=== PATIENT | female | born 1945 | race Caucasian/White ===

== ENCOUNTER → 2017-08-16 11:04 | Outpatient (CLI) | payer MEDICARE, SELFPAY ==
[2017-08-16 13:01] LABS: Cholesterol 117 mg/dL (200); High Density Lipoprotein 57 mg/dL; Thyroid Stim Hormone (TSH) 0.61 uIU/mL (0.358-3.74); Triglycerides 58 mg/dL; Very Low Density Lipoprotein 12 mg/dL (5-40)
== END ==
PROVIDERS: Family Provider Family Medicine; PCP Family Medicine; Visit Provider Family Medicine
DX: E03.9 Hypothyroidism, unspecified (principal)
CPT/HCPCS: 36415; 80061; 84443

== ENCOUNTER → 2017-10-30 12:21 | Outpatient (CLI) | payer MEDICARE, SELFPAY ==
[2017-10-30 14:15] LABS: Hematocrit 37.3 % (37-47); Hemoglobin 12.7 g/dl (12.0-15.0); Mean Platelet Vol. 10.6 fl (6.2-12.0); Platelet Count 239 K/mm3 (150-450); RBC Distribution Width CV 12.2 % (11.6-14.6); RBC Distribution Width SD 43.3 fl (35.1-43.9); Red Blood Count 3.73 M/mm3 (4.2-5.4); White Blood Count 3.9 K/mm3 (4.4-11.0)
[2017-10-30 14:21] LABS: Scan Indicated on CBC? Y/N NO
[2017-10-30 14:27] LABS: Microalbumin,Random Urine 82.4 mg/L (NO RANGE EST.); Microalbumin:Creatinine Ratio 73.6 mg/g CRE (<30 mg/g CRE)
[2017-10-30 14:33] LABS: Albumin, Serum 3.8 g/dL (3.2-5.0); BUN 29 mg/dL (7-18); BUN/Creat Ratio 15.5 RATIO (10-20); Calcium,Total 9.9 mg/dL (8.5-10.1); Chloride 102 mmol/L (98-107); Creatinine, Serum 1.87 mg/dL (0.55-1.02); EST Glomerular Filtration Rate 28 mL/min (>60); Est Glom Filt Rate - Afr Amer 34 mL/min (>60); Glucose 121 mg/dL (74-106); Magnesium 2.2 mg/dL (1.6-2.6); Phosphorus 2.6 mg/dL (2.5-4.9); Potassium 4.4 mmol/L (3.5-5.1); Sodium Level 135 mmol/L (136-145)
[2017-10-30 14:36] LABS: Vitamin D,25 Hydroxy 45.6 ng/mL (29.95-100.01)
[2017-10-30 14:37] LABS: PTHIN 144.9 pg/mL (18.4-80.1)
[2017-11-01 13:23] LABS: Tacrolimus (FK506) 7.4 ng/mL (2.0-20.0)
== END ==
PROVIDERS: Internal Medicine Nephrology; Family Provider Family Medicine; PCP Family Medicine; Visit Provider Internal Medicine Nephrology
DX: E55.9 Vitamin D deficiency, unspecified (principal); N25.81 Secondary hyperparathyroidism of renal origin; Z94.0 Kidney transplant status; D89.9 Disorder involving the immune mechanism, unspecified; N18.9 Chronic kidney disease, unspecified; D63.1 Anemia in chronic kidney disease
CPT/HCPCS: 36415; 80069; 80197; 82043; 82306; 82570; 83735; 83970; 85027

== ENCOUNTER → 2018-01-24 10:17 | Outpatient (CLI) | payer MEDICARE, SELFPAY ==
[2018-01-24 12:27] LABS: Anion Gap 8 (5-15); BUN 26 mg/dL (7-18); BUN/Creat Ratio 15.3 RATIO (10-20); Calcium,Total 9.7 mg/dL (8.5-10.1); Chloride 99 mmol/L (98-107); EST Glomerular Filtration Rate 31 mL/min (>60); Est Glom Filt Rate - Afr Amer 38 mL/min (>60); Glucose 99 mg/dL (74-106); Potassium 4.1 mmol/L (3.5-5.1); Sodium Level 136 mmol/L (136-145); Thyroid Stim Hormone (TSH) 5.38 uIU/mL (0.358-3.74)
== END ==
PROVIDERS: Family Provider Family Medicine; PCP Family Medicine; Visit Provider Family Medicine
DX: E03.9 Hypothyroidism, unspecified (principal)
CPT/HCPCS: 36415; 80048; 84443

== ENCOUNTER → 2018-04-08 09:28 | Outpatient (CLI) | payer MEDICARE, SELFPAY ==
[2018-04-08 12:22] LABS: Color, Urine Yellow (Yellow); Glucose, Dipstick Normal (Normal); Ketone-Dipstick Negative (Negative); Leukocyte Esterase-Dipstick Negative /ul (Negative); Nitrite-Dipstick Negative (Negative); Occult Blood-Urine Negative /ul (Negative); Protein-Dipstick Negative (Negative); Urine Bilirubin Dipstick Negative (Negative); Urine Clarity Clear (Clear); Urine Urobilinogen Normal (Normal)
[2018-04-08 12:24] LABS: Hematocrit 38.2 % (37-47); Hemoglobin 12.8 g/dl (12.0-15.0); Mean Corp Hgb Conc 33.5 g/gl (32-36); Mean Corpuscular Hgb 34.1 pg (27.0-32.0); Mean Corpuscular Volume 101.9 fL (81-99); Mean Platelet Vol. 10.8 fl (6.2-12.0); Platelet Count 241 K/mm3 (150-450); RBC Distribution Width CV 12.3 % (11.6-14.6); RBC Distribution Width SD 44.9 fl (35.1-43.9); Red Blood Count 3.75 M/mm3 (4.2-5.4)
[2018-04-08 12:29] LABS: Scan Indicated on CBC? Y/N NO
[2018-04-08 12:49] LABS: PTHIN 131.9 pg/mL (18.4-80.1); Vitamin D,25 Hydroxy 50.5 ng/mL (29.95-100.01)
[2018-04-08 12:56] LABS: Albumin, Serum 3.8 g/dL (3.2-5.0); BUN 23 mg/dL (7-18); BUN/Creat Ratio 14.3 RATIO (10-20); Calcium,Total 9.1 mg/dL (8.5-10.1); Chloride 104 mmol/L (98-107); Creatinine, Serum 1.61 mg/dL (0.55-1.02); EST Glomerular Filtration Rate 33 mL/min (>60); Est Glom Filt Rate - Afr Amer 40 mL/min (>60); Ferritin 106 ng/mL (8-252); Glucose 90 mg/dL (74-106); Iron 117 ug/dL (50-170); Iron Binding Capacity,Total 274 ug/dL (250-450); PERCENT IRON SATURATION 42.7 % (15.0-55.0); Phosphorus 2.6 mg/dL (2.5-4.9); Potassium 3.9 mmol/L (3.5-5.1); Sodium Level 137 mmol/L (136-145)
[2018-04-08 13:07] LABS: Microalbumin,Random Urine 21.4 mg/L (NO RANGE EST.); Microalbumin:Creatinine Ratio 32.5 mg/g CRE (<30 mg/g CRE); Protein, Urine (Random) 11.7 mg/dL (<11.9); Protein:Creat Ratio 178 mg/g CRE (0-200)
[2018-04-10 10:27] LABS: Tacrolimus (FK506) 5.8 ng/mL (2.0-20.0)
== END ==
PROVIDERS: Family Provider Family Medicine; PCP Family Medicine; Referring Provider Internal Medicine Nephrology; Visit Provider Internal Medicine Nephrology
DX: N25.81 Secondary hyperparathyroidism of renal origin (principal); E55.9 Vitamin D deficiency, unspecified; N18.9 Chronic kidney disease, unspecified; D63.1 Anemia in chronic kidney disease; Z94.0 Kidney transplant status; D89.9 Disorder involving the immune mechanism, unspecified
CPT/HCPCS: 36415; 80069; 80197; 81002; 82043; 82306; 82570; 82728; 83540; 83550; 83970; 84156; 85027

== ENCOUNTER → 2018-05-16 10:34 | Outpatient (CLI) | payer MEDICARE, SELFPAY ==
--- NOTE | 2018-05-16 10:37 | BI_ITS ---
MAMMOGRAPHY - BILATERAL SCREENING REASON FOR EXAM: Female, 73 years old. Routine annual screening examination. PERTINENT HISTORY: Non-contributory. TECHNIQUE: Digital bilateral breast brandy (3D mammographic acquisition) in the CC and MLO projections. 2-D mediolateral oblique (MLO) and craniocaudad (CC) views of both breasts were obtained. CAD: Full Field Digital Mammography with Computer Added Detection was performed. COMPARISON: Comparison is made with prior axial examination dated October 05, 2014. FINDINGS: Breast Composition: The breasts are heterogeneously dense, which may obscure small masses. There are no dominant masses or suspicious calcifications. No other significant abnormalities are identified. There has been no significant change since the prior study. BI/SCREENING MAMM (CAD), BILAT IMPRESSION: Stable bilateral screening mammogram. Yearly follow-up mammogram recommended. (A) ASSESSMENT CATEGORY: Approximately 10% of breast cancers are not detected by mammography. A normal mammogram should not delay biopsy of a clinically suspicious abnormality. [id number] Electronically Signed: Dimitris Oreilly MD at 9:32 EST Tel [phone], Service support ,
== END ==
PROVIDERS: Family Provider Family Medicine; PCP Family Medicine; Referring Provider Family Medicine; Visit Provider Family Medicine
DX: Z00.00 Encounter for general adult medical examination without abnormal findings (principal); Z12.31 Encounter for screening mammogram for malignant neoplasm of breast
CPT/HCPCS: 77063; 77067

== ENCOUNTER → 2018-07-11 10:12 | Outpatient (CLI) | payer MEDICARE, SELFPAY ==
[2018-07-11 13:03] LABS: Thyroid Stim Hormone (TSH) 5.88 uIU/mL (0.358-3.74)
--- OUTSIDE RECORDS SUMMARY | 2018-09-14 18:02 | XMS RPT_ITS ---
:1945 Author Organization OHIP Care Team Providers Name Role Phone Husam Bryant Attending Unavailable Husam Bryant Primary Care Unavailable Husam Bryant Attending Unavailable Husam Bryant Primary Care Unavailable Aubrie Hernández Consulting Unavailable Husam Bryant Primary Care Unavailable Aubrie Hernández Attending Unavailable Husam Bryant Attending Unavailable Husam Bryant Primary Care Unavailable Husam Bryant Primary Care Unavailable Referred, Self Attending Unavailable Husam Bryant Primary Care Unavailable Savannah Guerrero Attending Unavailable Savannah Guerrero Referring Unavailable Husam Bryant Attending Unavailable Husam Bryant Referring Unavailable Husam Bryant Primary Care Unavailable PROBLEMS PROBLEMS DATE TYPE CONDITION / CODE ATTENDING STATUS SOURCE Unknown E03.9 - Hypothyroidism, Husam Bryant Active [place] 9 unspecified / Community E03.9(ICD-10) Hospital Repository Unknown 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 [address] [place], [address] SCREENING MAMM (CAD), Observed: 05/16/2018 Status: F Source: MIGUEL BILAT 10:37 AM [facility] REPOSITORY [facility] Imaging Services [address] [facility] [address] SCREENING MAMM (CAD), BILAT MR#: [id number] Acct: [id number] Name: ANGELINE GEORGE Rep #: [id number] : 1945 F 73 From: Dimitris Oreilly MD PCP: Husam Bryant MD Status: [facility] Study: SCREENING MAMM (CAD), BILAT Date of Exam: 05/16/18 Exam# [id number] Ordering Dr: Husam Bryant MD ADDENDUM by Dimitris Oreilly MD on 05/20/18 at 0804 ADDENDUM This is an addendum report for BIRADS category. BIRADS Category 1. Electronically Signed: Dimitris Oreilly MD at 8:04 EST Tel [phone], Service support , 05/20/18 0804 Date cc: Husam Bryant MD * Signed ADDENDUM by Dimitris Oreilly MD on 05/20/18 at 0804 BI/SCREENING MAMM (CAD), BILAT 05/20/18 0811 Date cc: Husam Bryant MD * Signed MAMMOGRAPHY - BILATERAL SCREENING REASON FOR EXAM: Female, 73 years old. Routine annual screening examination. PERTINENT HISTORY: Non-contributory. TECHNIQUE: Digital bilateral breast brandy (3D mammographic acquisition) in the CC and MLO projections. 2-D mediolateral oblique (MLO) and craniocaudad (CC) views of both breasts were obtained. CAD: Full Field Digital Mammography with Computer Added Detection was performed. COMPARISON: Comparison is made with prior axial examination dated October 05, 2014. FINDINGS: Breast Composition: The breasts are heterogeneously dense, which may obscure small masses. There are no dominant masses or suspicious calcifications. No other significant abnormalities are identified. There has been no significant change since the prior study. BI/SCREENING MAMM (CAD), BILAT IMPRESSION: Stable bilateral screening mammogram. Yearly follow-up mammogram recommended. (A) ASSESSMENT CATEGORY: Approximately 10% of breast cancers are not detected by mammography. A normal mammogram should not delay biopsy of a clinically suspicious abnormality. [id number] Electronically Signed: Dimitris Oreilly MD at 9:32 EST Tel [phone], Service support , CC: Husam Bryant MD Fire Alarm Operator: Signed URINALYSIS, ROUTINE Collected: 04/08/2018 Status: F Source: MIGUEL (DIPSTICK) 9:32 AM [facility] REPOSITORY Order Comment: Comments: MIACRE How was Urine Obtained? CLEAN CATCH TYPE CODE TESTS RESULT OUT OF RANGE REFERENCE UNITS LAB L400.3000 Yellow COLOR Normal Yellow LAB L400.3050 Clear Normal CLARITY Clear LAB L400.3200 Normal mg/dl Normal GLUCOSE, UR Normal LAB L400.3300 Negative mg/dL Normal BILIRUBIN URINE Negative LAB L400.3400 Negative mg/dl Normal KETONE UR Negative LAB L400.3465 1.002-1.030 Normal SP.GR. DIPSTX 1.010 LAB L400.3550 5.0 - 8.0 pH UR Normal 7.0 LAB L400.3600 Negative mg/dl PROT Normal DIPSTX Negative LAB L400.3700 Normal mg/dl Normal UROBILI Normal LAB L400.3750 Negative Normal NITRITE UR Negative LAB L400.3780 Negative /ul Normal OCCULT BLOOD-UR Negative LAB L400.3800 Negative /ul LEUK Normal ESTERASE Negative Performed By: #### L400.2010 #### [facility] [address] [place], [place], [id number] CBC-COMPLETE BLOOD CNT Collected: 04/08/2018 Status: F Source: MIGUEL NO DIFF 9:32 AM [facility] REPOSITORY TYPE CODE TESTS RESULT OUT OF RANGE REFERENCE UNITS LAB L100.1000 4.4-11.0 K/mm3 Low WBC 4.0 LAB L100.1200 4.2-5.4 M/mm3 Low RBC 3.75 LAB L100.1300 12.0-15.0 g/dl Normal HGB 12.8 LAB L100.1400 37-47 % Normal HCT 38.2 LAB L100.1500 81-99 fL High MCV 101.9 LAB L100.1600 27.0-32.0 pg High MCH 34.1 LAB L100.1700 32-36 g/gl Normal MCHC 33.5 LAB L100.1810 11.6-14.6 % Normal RDW CV 12.3 LAB L100.1820 35.1-43.9 fl High RDW SD 44.9 LAB L100.1900 150-450 K/mm3 Normal PLT 241 LAB L100.2000 6.2-12.0 fl Normal MPV 10.8 Performed By: #### L100.0500 #### [facility] [address] [facility] [place], [place], [id number] PTHIN Collected: 04/08/2018 Status: F Source: MIGUEL 9:32 AM [facility] REPOSITORY TYPE CODE TESTS RESULT OUT OF RANGE REFERENCE UNITS LAB L509.1000 18.4-80.1 pg/mL High PTHIN 131.9 Performed By: #### L509.1000 #### [facility] [address] [place], [place], [address] VITAMIN D,25 HYDROXY Collected: 04/08/2018 Status: F Source: MIGUEL 9:32 AM [facility] REPOSITORY TYPE CODE TESTS RESULT OUT OF RANGE REFERENCE UNITS LAB L506.1000 29.95-100.01 ng/mL Normal Vitamin D 50.5 25-OH Result Comment: Vitamin D 25(OH) Status Range Deficiency <20 ng/mL (50nmol/L) Insuffciency 20 - 30 ng/mL (50 - 75 nmol/L) Sufficiency 30 - 100 ng/mL (75 - 250 nmol/L) Toxicity >100 ng/mL (>250 nmol/L) Performed By: #### L506.1000 #### [facility] [address] [place], [place], [address] RENAL PROFILE Collected: 04/08/2018 Status: F Source: MIGUEL 9:32 AM [facility] REPOSITORY Order Comment: Comments: MIACRE TYPE CODE TESTS RESULT OUT OF RANGE REFERENCE UNITS LAB L501.0100 74-106 mg/dL Normal GLU 90 Result Comment: Please note revised GLUCOSE reference range effective 2017. LAB L501.1000 7-18 mg/dL High BUN 23 LAB L501.1100 0.55-1.02 mg/dL High CREAT,SERUM 1.61 Result Comment: The validity of the calculated GFR AND GFRAA in patients over 70 years has not been determined. Clinical correlation is essential. LAB L501.1110 >60 mL/min Low EST GFR 33 Result Comment: Non- GFR Calc LAB L501.1115 >60 mL/min Low EST GFR - AA 40 Result Comment: GFR Calc LAB L501.1300 10-20 RATIO Normal BUN/CRE 14.3 LAB L501.1800 3.2-5.0 g/dL Normal ALB 3.8 LAB L501.2200 8.5-10.1 mg/dL CA Normal 9.1 LAB L501.2300 2.5-4.9 mg/dL Normal PHOS 2.6 LAB L501.5300 136-145 mmol/L NA Normal 137 LAB L501.5600 3.5-5.1 mmol/L K Normal 3.9 LAB L501.5900 98-107 mmol/L CL Normal 104 LAB L501.6100 21.0-32.0 mmol/L Normal CO2 23.0 Performed By: #### L500.3600, L503.6030, L503.6550 #### [facility] [address] [place], [address] IRON+IRON BINDING Collected: 04/08/2018 Status: F Source: MIGUEL CAPACITY 9:32 AM [facility] REPOSITORY Order Comment: Comments: MIACRE TYPE CODE TESTS RESULT OUT OF RANGE REFERENCE UNITS LAB L503.6075 250-450 ug/dL TIBC Normal 274 LAB L503.6150 50-170 ug/dL IRON Normal 117 LAB L503.6250 15.0-55.0 % IRON Normal SATURATION 42.7 Performed By: #### L500.3600, L503.6030, L503.6550 #### [facility] [address] [facility] [place], [address] FERRITIN Collected: 04/08/2018 Status: F Source: MIGUEL 9:32 AM [facility] REPOSITORY Order Comment: Comments: MIACRE TYPE CODE TESTS RESULT OUT OF RANGE REFERENCE UNITS LAB L503.6550 8-252 ng/mL Normal FERRITIN 106 Performed By: #### L500.3600, L503.6030, L503.6550 #### [facility] [address] [place], [address] PROTEIN+CREATININE Collected: Status: F Source: MIGUEL RATIO,URINE 04/08/2018 9:32 AM [facility] REPOSITORY TYPE CODE TESTS RESULT OUT OF RANGE REFERENCE UNITS LAB L501.1200 NO RANGE EST. mg/dL Normal UR CREAT 65.80 LAB L501.1930 <11.9 mg/dL Normal 11.7 PROTEIN,UR.R AN. LAB L501.1940 0-200 mg/g CRE Normal PROT:CRE 178 RATIO Performed By: #### L501.0900, L502.0250 #### [facility] [address] [place], [address] MICROALB:CREAT Collected: 04/08/2018 Status: F Source: MIGUEL RATIO,RANDOM UR 9:32 AM [facility] REPOSITORY TYPE CODE TESTS RESULT OUT OF RANGE REFERENCE UNITS LAB L502.0500 NO RANGE EST. mg/L Normal 21.4 MICROALBUMIN ,UR LAB L502.0600 <30 mg/g CRE mg/g CRE High 32.5 MALB:CREAT Performed By: #### L501.0900, L502.0250 #### [facility] [address], [address] TACROLIMUS (PROGRAF) Collected: 04/08/2018 Status: F Source: MIGUEL 9:32 AM [facility] REPOSITORY TYPE CODE TESTS RESULT OUT OF RANGE REFERENCE UNITS LAB L3380.1100 2.0-20.0 ng/mL Normal TACROLIMUS 5.8 Result Comment: Trough (immediately following transplant) 15.0 Trough (steady state, 2 weeks or more after transplant): 3.0 - 8.0 Detection Limit = 1.0 Performed by LC-MS/MS technology. Performed at: [facility] [address] [id number] Biology Specimen Technician: Nilson Escalera MD, Phone: [phone] Performed By: #### L3380.1000 #### [facility] (refer to report for specific site) refer to report for address and phone number BASIC METABOLIC Collected: 01/24/2018 Status: F Source: MIGUEL PROFILE (BMP) 10:17 AM [facility] REPOSITORY TYPE CODE TESTS RESULT OUT OF RANGE REFERENCE UNITS LAB L501.0100 74-106 mg/dL Normal GLU 99 Result Comment: Please note revised GLUCOSE reference range effective 2017. LAB L501.1000 7-18 mg/dL High BUN 26 LAB L501.1100 0.55-1.02 mg/dL High CREAT,SERUM 1.70 Result Comment: The validity of the calculated GFR AND GFRAA in patients over 70 years has not been determined. Clinical correlation is essential. LAB L501.1110 >60 mL/min Low EST GFR 31 Result Comment: Non- GFR Calc LAB L501.1115 >60 mL/min Low EST GFR - AA 38 Result Comment: GFR Calc LAB L501.1300 10-20 RATIO Normal BUN/CRE 15.3 LAB L501.2200 8.5-10.1 mg/dL CA Normal 9.7 LAB L501.5300 136-145 mmol/L NA Normal 136 LAB L501.5600 3.5-5.1 mmol/L K Normal 4.1 LAB L501.5900 98-107 mmol/L CL Normal 99 LAB L501.6100 21.0-32.0 mmol/L Normal CO2 29.0 LAB L501.6200 5-15 Normal GAP 8 Performed By: #### L500.2500, L501.9520 #### [facility] [address] [place], [place], [address] THYROID STIM HORMONE Collected: 01/24/2018 Status: F Source: MIGUEL (TSH) 10:17 AM [facility] REPOSITORY TYPE CODE TESTS RESULT OUT OF RANGE REFERENCE UNITS LAB L501.9520 0.358-3.74 uIU/mL High TSH 5.38 Performed By: #### L500.2500, L501.9520 #### [facility] [address] [place], [place], [address] CBC-COMPLETE BLOOD CNT Collected: 10/30/2017 Status: F Source: MIGUEL NO DIFF 12:24 PM [facility] REPOSITORY TYPE CODE TESTS RESULT OUT OF RANGE REFERENCE UNITS LAB L100.1000 4.4-11.0 K/mm3 Low WBC 3.9 LAB L100.1200 4.2-5.4 M/mm3 Low RBC 3.73 LAB L100.1300 12.0-15.0 g/dl Normal HGB 12.7 LAB L100.1400 37-47 % Normal HCT 37.3 LAB L100.1500 81-99 fL High MCV 100.0 LAB L100.1600 27.0-32.0 pg High MCH 34.0 LAB L100.1700 32-36 g/gl Normal MCHC 34.0 LAB L100.1810 11.6-14.6 % Normal RDW CV 12.2 LAB L100.1820 35.1-43.9 fl Normal RDW SD 43.3 LAB L100.1900 150-450 K/mm3 Normal PLT 239 LAB L100.2000 6.2-12.0 fl Normal MPV 10.6 Performed By: #### L100.0500 #### [facility] [address] [place], [place], [address] MICROALB:CREAT Collected: 10/30/2017 Status: F Source: MIGUEL RATIO,RANDOM UR 12:24 PM [facility] REPOSITORY TYPE CODE TESTS RESULT OUT OF RANGE REFERENCE UNITS LAB L501.1200 NO RANGE EST. mg/dL Normal UR CREAT 112.00 LAB L502.0500 NO RANGE EST. mg/L Normal 82.4 MICROALBUMIN ,UR LAB L502.0600 <30 mg/g CRE mg/g CRE High 73.6 MALB:CREAT Performed By: #### L502.0250 #### [facility] [address] [facility] [place], [place], [address] RENAL PROFILE Collected: 10/30/2017 Status: F Source: MIGUEL 12:24 PM [facility] REPOSITORY TYPE CODE TESTS RESULT OUT OF RANGE REFERENCE UNITS LAB L501.0100 74-106 mg/dL High GLU 121 Result Comment: Fasting Glucose result from 100 to 125 mg/dL suggests IMPAIRED HOMEOSTASIS per A.D.A. criteria. Please note revised GLUCOSE reference range effective 2017. LAB L501.1000 7-18 mg/dL High BUN 29 LAB L501.1100 0.55-1.02 mg/dL High CREAT,SERUM 1.87 Result Comment: The validity of the calculated GFR AND GFRAA in patients over 70 years has not been determined. Clinical correlation is essential. LAB L501.1110 >60 mL/min Low EST GFR 28 Result Comment: Non- GFR Calc LAB L501.1115 >60 mL/min Low EST GFR - AA 34 Result Comment: GFR Calc LAB L501.1300 10-20 RATIO Normal BUN/CRE 15.5 LAB L501.1800 3.2-5.0 g/dL Normal ALB 3.8 LAB L501.2200 8.5-10.1 mg/dL CA Normal 9.9 LAB L501.2300 2.5-4.9 mg/dL Normal PHOS 2.6 LAB L501.5300 136-145 mmol/L Low NA 135 LAB L501.5600 3.5-5.1 mmol/L K Normal 4.4 LAB L501.5900 98-107 mmol/L CL Normal 102 LAB L501.6100 21.0-32.0 mmol/L Normal CO2 24.0 Performed By: #### L500.3600, L501.5200 #### [facility] [address] [place], [address] MAGNESIUM Collected: 10/30/2017 Status: F Source: [place] 12:24 PM [facility] REPOSITORY TYPE CODE TESTS RESULT OUT OF RANGE REFERENCE UNITS LAB L501.5200 1.6-2.6 mg/dL Normal MG 2.2 Performed By: #### L500.3600, L501.5200 #### [facility] [address] [place], [address] VITAMIN D,25 HYDROXY Collected: 10/30/2017 Status: F Source: [place] 12:24 PM [facility] REPOSITORY TYPE CODE TESTS RESULT OUT OF RANGE REFERENCE UNITS LAB L506.1000 29.95-100.01 ng/mL Normal Vitamin D 45.6 25-OH Result Comment: Vitamin D 25(OH) Status Range Deficiency <20 ng/mL (50nmol/L) Insuffciency 20 - 30 ng/mL (50 - 75 nmol/L) Sufficiency 30 - 100 ng/mL (75 - 250 nmol/L) Toxicity >100 ng/mL (>250 nmol/L) Performed By: #### L506.1000 #### [facility] [address] [place], [address] PTHIN Collected: 10/30/2017 Status: F Source: [place] 12:24 PM [facility] REPOSITORY TYPE CODE TESTS RESULT OUT OF RANGE REFERENCE UNITS LAB L509.1000 18.4-80.1 pg/mL High PTHIN 144.9 Performed By: #### L509.1000 #### [facility] [address] [place], [address] TACROLIMUS (PROGRAF) Collected: 10/30/2017 Status: F Source: MIGUEL 12:24 PM [facility] REPOSITORY TYPE CODE TESTS RESULT OUT OF RANGE REFERENCE UNITS LAB L3380.1100 2.0-20.0 ng/mL Normal TACROLIMUS 7.4 Result Comment: Trough (immediately following transplant) 15.0 Trough (steady state, 2 weeks or more after transplant): 3.0 - 8.0 Detection Limit = 1.0 Performed by LC-MS/MS technology. Performed at: - [facility] [id number] Biology Specimen Technician: Nilson Escalera MD, Phone: [phone] Performed By: #### L3380.1000 #### [facility] (refer to report for specific site) refer to report for address and phone number LIPID PROFILE Collected: 08/16/2017 Status: F Source: MIGUEL 11:06 AM [facility] REPOSITORY TYPE CODE TESTS RESULT OUT OF RANGE REFERENCE UNITS LAB L501.4900 200 mg/dL Normal CHOL 117 Result Comment: <200 mg/dL Desirable 200-240 mg/dL Borderline >240 mg/dL High Risk LAB L501.5000 mg/dL Normal TRIG 58 Result Comment: The drugs N-Acetylcysteine and Metamizole may falsely depress this assay. Serum Triglycerides Reference Interval Normal <150 mg/dL Borderline high 150 - 199 mg/dL High 200 - 499 mg/dL Very High > or = 500 mg/dL LAB L501.6400 mg/dL Normal HDL 57 Result Comment: The drugs N-Acetylcysteine and Metamizole may falsely depress this assay. Reference Range HDL <40 mg/dL Low HDL Cholesterol HDL >or= 60 mg/dL High HDL Cholesterol LAB L501.6500 0-130 mg/dL Normal LDL 48 LAB L501.6600 5-40 mg/dL Normal VLDL 12 Performed By: #### L500.4100, L501.9520 #### [facility] [address] [place], [address] THYROID STIM HORMONE Collected: 08/16/2017 Status: F Source: MIGUEL (TSH) 11:06 AM [facility] REPOSITORY TYPE CODE TESTS RESULT OUT OF RANGE REFERENCE UNITS LAB L501.9520 0.358-3.74 uIU/mL Normal TSH 0.61 Performed By: #### L500.4100, L501.9520 #### [facility] [address] [place], [address] ALLERGIES ALLERGIES DATE TYPE / CODE NAME / CODE REACTION SEVERITY SOURCE 08/13/2013 Drug No Known Unknown [facility] Allergy/4160 Allergies/F00 Hospital 69195(SNOMED 7788624(RXNOR Repository CT) M) ENCOUNTERS ENCOUNTERS ADMIT/DISCHARGE ACCOUNT ADMITTING ENCOUNTER LOCATION SOURCE NUMBER CLASS 07/11/2018 [id number] Ambulatory [place] 5 [facility] ing:MFPLAB Repository 07/04/2018 [id number] Ambulatory [place] 6 [facility] ing:MASS Repository 05/16/2018 [id number] Ambulatory [place] 8 [facility] ing:OPBI Repository 04/08/2018 [id number] Ambulatory [place] 8 [facility] ing:MFPLAB Repository 01/24/2018 [id number] Ambulatory [place] 2 [facility] ing:MFPLAB Repository 10/30/2017 [id number] Ambulatory [place] 8 [facility] ing:MFPLAB Repository 08/16/2017 [id number] Ambulatory [place] 3 [facility] ing:MFPLAB Repository PAYERS PAYERS ENCOUNTER GUARANTOR PAYER SUBSCRIBER SOURCE 07/11/2018 DONOVAN O Primary ANGELINE Ally [place] [id number] Insurance:PAOLA BURNETTB: [facility] Alo MARTÍNEZ [facility]: [id number] [address]Wpj: [id number] Repository Date:1558-80-09[address] WOLF [address]TF: 07/11/2018 Secondary NOT GIVENUNK [place] Insurance:SELF PAY [facility] Number: Effective Repository Date:2018-07-11 07/04/2018 DONOVAN O Primary NOT GIVENUNK [place] [id number] Insurance:SELF PAY [facility] [address]Dve: Number: Effective Repository Date:2018-03-05 () 05/16/2018 DONOVAN O Primary ANGELINE K [place] [id number] Insurance:AETNA DORISDOB: [facility] Number: [id number] [address]Sbx: [id number] Repository Date:5257-55-84PT [address] ([address]) [id number] SELINA MIRZA [address]EE: 05/16/2018 Secondary NOT GIVENUNK [place] Insurance:SELF PAY [facility] Number: Effective Repository Date:2018-04-02 04/08/2018 DONOVAN O Primary ANGELINE K [place] [id number] Insurance:AETNA DORISDOB: [facility] Number: [id number] [address]Jxf: [id number] Repository Date:0735-26-64LU [address] () [id number] SELINA [place] [address]WR: 04/08/2018 Secondary NOT GIVENUNK [place] Insurance:SELF PAY [facility] Number: Effective Repository Date:2018-04-08 01/24/2018 DONOVAN O Primary ANGELINE K [place] [id number] Insurance:AETNA DORISDOB: [facility] Number: [id number] [address]Ukr: [id number] Repository Date:9942-67-71YQ [address] () [id number] SELINA M[place] [address]HX: 01/24/2018 Secondary NOT GIVENUNK [place] Insurance:SELF PAY [facility] Number: Effective Repository Date:2018-01-24 10/30/2017 DONOVAN O Primary ANGELINE K [place] [id number] Insurance:AETNA WASSONDOB: [facility] Alo MARTÍNEZ Number: [id number] [address]Izs: [id number] Repository Date:7296-79-05MR [address] () [id number] SELINA M[place]ZA [address]PG: 10/30/2017 Secondary NOT GIVENUNK [place] Insurance:SELF PAY [facility] Number: Effective Repository Date:2017-10-30 08/16/2017 DONOVAN O Primary ANGELINE K [place] [id number] Insurance:PAOLA BURNETTB: [facility] NEHEMIAS MARTÍNEZJamilaalis Number: [id number] General Hospital [address]Sot: [id number] Repository Date:8089-40-70EP [address] () [id number] SELINA [place] [address]FV: 08/16/2017 Secondary NOT GIVENUNK [place] Insurance:SELF PAY [facility] Number: Effective Repository Date:2017-08-16
== END ==
PROVIDERS: Family Provider Family Medicine; PCP Family Medicine; Visit Provider Family Medicine
DX: E03.9 Hypothyroidism, unspecified (principal)
CPT/HCPCS: 36415; 84443

== ENCOUNTER → 2018-09-17 10:23 | Outpatient (CLI) | payer MEDICARE, SELFPAY ==
[2018-09-17 12:43] LABS: Hemoglobin 12.8 g/dl (12.0-15.0); Mean Corp Hgb Conc 32.8 g/gl (32-36); Mean Corpuscular Hgb 33.3 pg (27.0-32.0); Mean Corpuscular Volume 101.6 fL (81-99); Mean Platelet Vol. 10.7 fl (6.2-12.0); Platelet Count 243 K/mm3 (150-450); RBC Distribution Width CV 12.7 % (11.6-14.6); RBC Distribution Width SD 47.1 fl (35.1-43.9); Red Blood Count 3.84 M/mm3 (4.2-5.4); White Blood Count 4.1 K/mm3 (4.4-11.0)
[2018-09-17 12:45] LABS: Scan Indicated on CBC? Y/N NO
[2018-09-17 13:07] LABS: Color, Urine Yellow (Yellow); Glucose, Dipstick Normal (Normal); Ketone-Dipstick Negative (Negative); Leukocyte Esterase-Dipstick 25 /ul (Negative); Nitrite-Dipstick Negative (Negative); Occult Blood-Urine Negative /ul (Negative); Protein-Dipstick Negative (Negative); Urine Bilirubin Dipstick Negative (Negative); Urine Clarity Clear (Clear); Urine Urobilinogen Normal (Normal)
[2018-09-17 13:13] LABS: Vitamin D,25 Hydroxy 58.5 ng/mL (29.95-100.01)
[2018-09-17 13:15] LABS: PTHIN 80.1 pg/mL (18.4-80.1)
[2018-09-17 13:16] LABS: Albumin, Serum 3.6 g/dL (3.2-5.0); BUN 19 mg/dL (7-18); BUN/Creat Ratio 11.1 RATIO (10-20); Calcium,Total 9.6 mg/dL (8.5-10.1); Chloride 103 mmol/L (98-107); Cholesterol 125 mg/dL (200); Creatinine, Serum 1.71 mg/dL (0.55-1.02); EST Glomerular Filtration Rate 31 mL/min (>60); Est Glom Filt Rate - Afr Amer 38 mL/min (>60); Glucose 134 mg/dL (74-106); High Density Lipoprotein 53 mg/dL; Phosphorus 2.5 mg/dL (2.5-4.9); Potassium 3.9 mmol/L (3.5-5.1); Sodium Level 139 mmol/L (136-145); Triglycerides 62 mg/dL; Very Low Density Lipoprotein 12 mg/dL (5-40)
[2018-09-17 13:51] LABS: Microalbumin,Random Urine 27.2 mg/L (NO RANGE EST.); Microalbumin:Creatinine Ratio 28.3 mg/g CRE (<30 mg/g CRE); Protein, Urine (Random) 15.1 mg/dL (<11.9); Protein:Creat Ratio 157 mg/g CRE (0-200)
[2018-09-19 13:51] LABS: Tacrolimus (FK506) 12.8 ng/mL (2.0-20.0)
== END ==
PROVIDERS: Family Provider Family Medicine; PCP Family Medicine; Referring Provider Family Medicine; Visit Provider Internal Medicine Nephrology
DX: Z94.0 Kidney transplant status (principal); N18.9 Chronic kidney disease, unspecified; D63.1 Anemia in chronic kidney disease; N25.81 Secondary hyperparathyroidism of renal origin; E55.9 Vitamin D deficiency, unspecified; D89.9 Disorder involving the immune mechanism, unspecified; E78.5 Hyperlipidemia, unspecified
CPT/HCPCS: 36415; 80061; 80069; 80197; 81002; 82043; 82306; 82570; 83970; 84156; 85027

== ENCOUNTER → 2018-11-06 | Outpatient (CLI) | payer MEDICARE, SELFPAY ==
[2018-11-08 15:04] LABS: Tacrolimus (FK506) 6.1 ng/mL (2.0-20.0)
== END | disposition home or self-care (01) ==
LOC: MFPLAB 09:17
PROVIDERS: Family Provider Family Medicine; PCP Family Medicine; Referring Provider Family Medicine; Visit Provider Family Medicine
DX: D89.9 Disorder involving the immune mechanism, unspecified (principal)
CPT/HCPCS: 36415; 80197

== ENCOUNTER → 2019-04-28 11:07 | Outpatient (CLI) | payer MEDICARE, SELFPAY ==
[2019-04-28 12:34] LABS: Hematocrit 39.9 % (37-47); Hemoglobin 13.2 g/dL (12.0-15.0); Mean Corp Hgb Conc 33.1 g/dL (32-36); Mean Corpuscular Volume 99.8 fL (81-99); Mean Platelet Vol. 10.5 fl (6.2-12.0); Platelet Count 226 K/mm3 (150-450); RBC Distribution Width CV 12.1 % (11.6-14.6); RBC Distribution Width SD 44.6 fl (35.1-43.9); White Blood Count 5.9 K/mm3 (4.4-11.0)
[2019-04-28 13:06] LABS: Color, Urine Yellow (Yellow); Glucose, Dipstick Normal (Normal); Ketone-Dipstick Negative (Negative); Leukocyte Esterase-Dipstick 25 /ul (Negative); Nitrite-Dipstick Negative (Negative); Occult Blood-Urine Negative /ul (Negative); Protein-Dipstick 15 mg/dl (Negative); Urine Bilirubin Dipstick Negative (Negative); Urine Clarity Clear (Clear); Urine Urobilinogen Normal (Normal)
[2019-04-28 13:07] LABS: Albumin, Serum 3.8 g/dL (3.2-5.0); BUN 24 mg/dL (7-18); BUN/Creat Ratio 15.3 RATIO (10-20); Calcium,Total 9.6 mg/dL (8.5-10.1); Chloride 104 mmol/L (98-107); Creatinine, Serum 1.57 mg/dL (0.55-1.02); EST Glomerular Filtration Rate 34 mL/min (>60); Est Glom Filt Rate - Afr Amer 41 mL/min (>60); Glucose 88 mg/dL (74-106); Phosphorus 2.8 mg/dL (2.5-4.9); Potassium 3.9 mmol/L (3.5-5.1); Sodium Level 135 mmol/L (136-145)
[2019-04-28 13:12] LABS: Vitamin D,25 Hydroxy 42.3 ng/mL (29.95-100.01)
[2019-04-28 13:18] LABS: Microalbumin,Random Urine 98.6 mg/L (NO RANGE EST.); Microalbumin:Creatinine Ratio 89.6 mg/g CRE (<30 mg/g CRE); Protein, Urine (Random) 25.4 mg/dL (<11.9); Protein:Creat Ratio 231 mg/g CRE (0-200)
[2019-04-28 13:38] LABS: PTHIN 156.4 pg/mL (18.4-80.1)
[2019-05-01 12:11] LABS: Free T3 2.5 pg/mL (2.18-3.98); Thyroid Stim Hormone (TSH) 8.41 uIU/mL (0.358-3.74)
[2019-05-01 20:50] LABS: Tacrolimus (FK506) 6.3 ng/mL (2.0-20.0)
== END ==
PROVIDERS: Family Provider Family Medicine; PCP Family Medicine; Referring Provider Family Medicine; Visit Provider Internal Medicine
DX: I12.9 Hypertensive chronic kidney disease with stage 1 through stage 4 chronic kidney disease, or unspecified chronic kidney disease (principal); N18.9 Chronic kidney disease, unspecified; E55.9 Vitamin D deficiency, unspecified; N25.81 Secondary hyperparathyroidism of renal origin; D89.9 Disorder involving the immune mechanism, unspecified; D63.1 Anemia in chronic kidney disease
CPT/HCPCS: 36415; 80069; 80197; 81002; 82043; 82306; 82570; 83970; 84156; 84436; 84443; 84481; 85027

== ENCOUNTER → 2019-07-07 09:21 | Outpatient (CLI) | payer MEDICARE, SELFPAY ==
[2019-07-07 10:30] LABS: Absolute Lymphocyte Count 1.69 X10^3/uL (0.83-4.51); Basophil# 0.02 X10^3/uL; Basophil% 0.3 % (0-1); Eosinophil# 0.38 X10^3/uL; Eosinophils% 6.6 % (0-5); Hematocrit 42.5 % (37-47); Hemoglobin 14.2 g/dL (12.0-15.0); Lymphocyte # 1.69 X10^3/ul (4.0); Lymphocyte % 29.5 % (19-41); Mean Corp Hgb Conc 33.4 g/dL (32-36); Mean Corpuscular Hgb 32.7 pg (27.0-32.0); Mean Corpuscular Volume 97.9 fL (81-99); Mean Platelet Vol. 10.4 fl (6.2-12.0); Monocyte# 0.64 X10^3/uL; Monocyte% 11.2 % (0-10); NRBC Flagged by Analyzer 0 % (0-5); Neutrophil # 2.99 X10^3/uL (2.7-7.7); Neutrophil % 52.2 % (47-70); Platelet Count 261 K/mm3 (150-450); RBC Distribution Width CV 11.9 % (11.6-14.6); RBC Distribution Width SD 42.9 fl (35.1-43.9); Red Blood Count 4.34 M/mm3 (4.2-5.4); White Blood Count 5.7 K/mm3 (4.4-11.0)
[2019-07-07 10:57] LABS: Vitamin D,25 Hydroxy 48.7 ng/mL (29.95-100.01)
[2019-07-07 11:10] LABS: ALB/GLOB Ratio 0.9 RATIO (0.9-2.4); AST(SGOT) 20 U/L (15-37); Alanine Aminotransfer ALT/SGPT 20 U/L (13-56); Albumin, Serum 3.7 g/dL (3.2-5.0); Alkaline Phosphatase 163 U/L (45-117); Anion Gap 6 (5-15); BUN 25 mg/dL (7-18); Calcium,Total 9.4 mg/dL (8.5-10.1); Chloride 102 mmol/L (98-107); Cholesterol 132 mg/dL (200); Creatinine, Serum 1.78 mg/dL (0.55-1.02); EST Glomerular Filtration Rate 30 mL/min (>60); Est Glom Filt Rate - Afr Amer 36 mL/min (>60); Globulin 4.1 g/dL (2.2-4.2); Glucose 100 mg/dL (74-106); High Density Lipoprotein 53 mg/dL; Potassium 3.7 mmol/L (3.5-5.1); Protein, Total 7.8 g/dL (6.4-8.2); Sodium Level 135 mmol/L (136-145); Thyroid Stim Hormone (TSH) 1.61 uIU/mL (0.358-3.74); Triglycerides 71 mg/dL; Very Low Density Lipoprotein 14 mg/dL (5-40)
== END ==
PROVIDERS: Family Provider Family Medicine; PCP Family Medicine; Referring Provider Family Medicine; Visit Provider Family Medicine
DX: E03.9 Hypothyroidism, unspecified (principal); E21.3 Hyperparathyroidism, unspecified; E55.9 Vitamin D deficiency, unspecified
CPT/HCPCS: 36415; 80053; 80061; 82306; 84443; 85025

== ENCOUNTER → 2019-07-14 10:33 | Outpatient (CLI) | payer MEDICARE, SELFPAY ==
--- NOTE | 2019-07-14 10:42 | BD_ITS ---
STUDY: DUAL ENERGY X-RAY ABSORPTIOMETRY / DXA REASON FOR EXAM: Female, 74 years old. [employer] -- HX OF HRT FOR SHORT WHILE IN PAST -- TAKES THYROID MEDICATION -- TAKES ANTI-SEIZURE MEDS -- TAKES MULTIVITAMIN -- DOES HIGH AMOUNT OF EXERCISE -- FAMILY HX OF OSTEO- MOTHER -- HX OF LAMINECTOMY -- ANA LAURA OF 0.5 INCH TECHNIQUE: Bone Mineral Density (BMD) measurements of lumbar spine and bilateral hips were obtained. COMPARISON: None. FINDINGS: Lumbar Spine (L1-L4): g/cm2 (0.915) / T-score (-2.1) / Z-score (-0.4) Findings are suggestive of osteopenia with a moderate fracture risk. Left Femur Total: g/cm2 (0.855) / T-score (-1.2) / Z-score (0.5) Left Femoral Neck: g/cm2 (0.841) / T-score (-1.4) / Z-score (0.5) Right Femur Total: g/cm2 (0.823) / T-score (-1.5) / Z-score (0.3) Right Femoral Neck: g/cm2 (0.790) / T-score (-1.8) / Z-score (0.1) BD/Dexa Bone Density Study IMPRESSION: The patient is considered osteopenic as outlined below according to World B[employer] Organization (WHO) criteria with a moderate fracture risk. Reference Information: The T-score is the number of standard deviations above or below the standard which is normal for young adults at their peak bone mineral density. The World Health Organization (WHO) interprets the T-scores as follows: Above -1 Normal bone density Between -1 and -2.5 Osteopenia Equal to / or below -2.5 Osteoporosis As a practical clinical guideline, osteopenia may be graded as follows: Mild -1 through -1.5 Moderate -1.6 through -2.0 Severe -2.1 through -2.4 The Z-score is the number of standard deviations above or below age-matched controls. A Z-score of less than -1.5 would be considered abnormal. References: 1. NIH Osteoporosis and Related Bone Diseases http://www.osteo.org 2. International Society for Clinical Densitometry http://www.iscd.org 3. National Osteoporosis Foundation http://www.nof.org Electronically Signed: Dimitris Oreilly, at 15:43 EST , Service support ,
== END ==
PROVIDERS: Family Provider Family Medicine; PCP Family Medicine; Referring Provider Family Medicine; Visit Provider Family Medicine
DX: Z00.00 Encounter for general adult medical examination without abnormal findings (principal); M81.0 Age-related osteoporosis without current pathological fracture; Z78.0 Asymptomatic menopausal state
CPT/HCPCS: 77080

== ENCOUNTER → 2019-10-30 09:32 | Outpatient (CLI) | payer MEDICARE, SELFPAY ==
[2019-10-30 12:22] LABS: Anion Gap 7 (5-15); BUN 32 mg/dL (7-18); BUN/Creat Ratio 19.5 RATIO (10-20); Calcium,Total 9.9 mg/dL (8.5-10.1); Chloride 100 mmol/L (98-107); Creatinine, Serum 1.64 mg/dL (0.55-1.02); EST Glomerular Filtration Rate 32 mL/min (>60); Est Glom Filt Rate - Afr Amer 39 mL/min (>60); Glucose 101 mg/dL (74-106); Phosphorus 3.2 mg/dL (2.5-4.9); Potassium 3.9 mmol/L (3.5-5.1); Sodium Level 131 mmol/L (136-145)
[2019-10-30 12:55] LABS: PTHIN 72.2 pg/mL (18.4-80.1)
[2019-10-30 12:59] LABS: Vitamin D,25 Hydroxy 89.6 ng/mL
[2019-10-30 13:03] LABS: Protein, Urine (Random) 9.6 mg/dL (<11.9); Protein:Creat Ratio 188 mg/g CRE (0-200)
[2019-10-30 13:19] LABS: Color, Urine Yellow (Yellow); Glucose, Dipstick Normal (Normal); Ketone-Dipstick Negative (Negative); Leukocyte Esterase-Dipstick 100 /ul (Negative); Nitrite-Dipstick Negative (Negative); Occult Blood-Urine Negative /ul (Negative); Protein-Dipstick Negative (Negative); Urine Bilirubin Dipstick Negative (Negative); Urine Clarity Clear (Clear); Urine Urobilinogen Normal (Normal)
[2019-11-03 20:02] LABS: Tacrolimus (FK506) 4.6 ng/mL (2.0-20.0)
== END ==
PROVIDERS: PCP Family Medicine; Visit Provider Family Medicine
DX: N25.81 Secondary hyperparathyroidism of renal origin (principal); D89.9 Disorder involving the immune mechanism, unspecified; Z94.0 Kidney transplant status
CPT/HCPCS: 36415; 80048; 80197; 81002; 82306; 82570; 83970; 84100; 84156

== ENCOUNTER → 2019-12-15 10:43 | Outpatient (CLI) | payer MEDICARE, SELFPAY ==
[2019-12-15 10:27] VITALS: BMI 26.2
--- NOTE | 2019-12-15 10:44 | RAD_ITS ---
STUDY: X-RAY - RIGHT KNEE REASON FOR EXAM: Female, 74 years old. RT KNEE PAIN, LIMITED WEIGHTBEARING TECHNIQUE: 5 view(s) of the knee. COMPARISON: None. FINDINGS: Normal visualized distal femur. Normal visualized proximal tibia and fibula. Normal proximal tibiofibular articulation. There is mild degenerative arthrosis of the medial femorotibial compartment. There is mild degenerative arthrosis of the lateral femorotibial compartment. There is mild degenerative arthrosis of the patellofemoral articulation. The soft tissue structures are unremarkable. RAD/Knee 4 or More Views IMPRESSION: Degenerative arthrosis. Electronically Signed: Chacho Rosales MD at 11:12 EDT , Service support ,
== END ==
PROVIDERS: PCP Family Medicine; Referring Provider Physician Assistant Surgical; Visit Provider Physician Assistant Surgical
DX: S86.911A Strain of unspecified muscle(s) and tendon(s) at lower leg level, right leg, initial encounter (principal)
CPT/HCPCS: 73564

== ENCOUNTER → 2020-01-27 10:15 | Outpatient (CLI) | payer MEDICARE, SELFPAY ==
[2019-12-15 10:27] VITALS: BMI 26.2
[2020-01-27 10:19] LABS: Bacteria 0 SEEN /hpf (None Seen); Mucous, Urine 0 SEEN /hpf (<or=2+); Red Blood Cells-Urine 0 SEEN /hpf (0-5)
[2020-01-27 11:57] LABS: Color, Urine Yellow (Yellow); Glucose, Dipstick Normal (Normal); Ketone-Dipstick Negative (Negative); Leukocyte Esterase-Dipstick 25 /ul (Negative); Nitrite-Dipstick Negative (Negative); Occult Blood-Urine Negative /ul (Negative); Protein-Dipstick Negative (Negative); Specific Gravity, Urine 1.005 (1.002-1.030); Urine Bilirubin Dipstick Negative (Negative); Urine Clarity Sl. Cloudy (Clear); Urine Urobilinogen Normal (Normal)
[2020-01-27 12:03] LABS: Squamous Epithelial Cells - UA 0-5 SEEN /hpf (5-10); White Blood Cells 0-5 SEEN /hpf (0-5)
[2020-01-27 12:23] LABS: Anion Gap 6 (5-15); BUN 44 mg/dL (7-18); BUN/Creat Ratio 29.3 RATIO (10-20); Calcium,Total 9.3 mg/dL (8.5-10.1); Chloride 105 mmol/L (98-107); EST Glomerular Filtration Rate 36 mL/min (>60); Est Glom Filt Rate - Afr Amer 43 mL/min (>60); Glucose 101 mg/dL (74-106); Potassium 4.2 mmol/L (3.5-5.1); Sodium Level 138 mmol/L (136-145)
== END ==
PROVIDERS: PCP Family Medicine; Referring Provider Family Medicine; Visit Provider Internal Medicine
DX: D89.9 Disorder involving the immune mechanism, unspecified (principal); Z94.0 Kidney transplant status
CPT/HCPCS: 36415; 80048; 81001

== ENCOUNTER → 2020-04-25 10:07 | Outpatient (CLI) | payer MEDICARE, SELFPAY ==
[2019-12-15 10:27] VITALS: BMI 26.2
[2020-04-25 12:34] LABS: Color, Urine Yellow (Yellow); Glucose, Dipstick Normal (Normal); Ketone-Dipstick Negative (Negative); Leukocyte Esterase-Dipstick 25 /ul (Negative); Nitrite-Dipstick Negative (Negative); Occult Blood-Urine Negative /ul (Negative); Protein-Dipstick 30 mg/dl (Negative); Urine Bilirubin Dipstick Negative (Negative); Urine Clarity Sl. Cloudy (Clear); Urine Urobilinogen Normal (Normal)
[2020-04-25 12:51] LABS: Vitamin D,25 Hydroxy 91.3 ng/mL
[2020-04-25 12:58] LABS: Anion Gap 7 (5-15); BUN 42 mg/dL (7-18); BUN/Creat Ratio 22.7 RATIO (10-20); Calcium,Total 9.5 mg/dL (8.5-10.1); Chloride 102 mmol/L (98-107); Creatinine, Serum 1.85 mg/dL (0.55-1.02); EST Glomerular Filtration Rate 28 mL/min (>60); Est Glom Filt Rate - Afr Amer 34 mL/min (>60); Glucose 118 mg/dL (74-106); Phosphorus 2.6 mg/dL (2.5-4.9); Potassium 3.7 mmol/L (3.5-5.1); Sodium Level 136 mmol/L (136-145)
[2020-04-25 12:59] LABS: Protein, Urine (Random) 33.8 mg/dL (<11.9); Protein:Creat Ratio 218 mg/g CRE (0-200)
[2020-04-27 09:27] LABS: Tacrolimus (FK506) 6.8 ng/mL (2.0-20.0)
== END ==
PROVIDERS: PCP Family Medicine; Visit Provider Internal Medicine
DX: I12.9 Hypertensive chronic kidney disease with stage 1 through stage 4 chronic kidney disease, or unspecified chronic kidney disease (principal); N18.9 Chronic kidney disease, unspecified; Z94.0 Kidney transplant status; N25.81 Secondary hyperparathyroidism of renal origin
CPT/HCPCS: 36415; 80048; 80197; 81002; 82306; 82570; 83970; 84100; 84156

== ENCOUNTER → 2020-10-06 08:52 | Outpatient (CLI) | payer MEDICARE, SELFPAY ==
[2019-12-15 10:27] VITALS: BMI 26.2
[2020-10-06 08:59] LABS: Bacteria 0 SEEN /hpf (None Seen); Mucous, Urine 0 SEEN /hpf (<or=2+); Red Blood Cells-Urine 0 SEEN /hpf (0-5); Squamous Epithelial Cells - UA 0 SEEN /hpf (5-10)
[2020-10-06 10:24] LABS: Color, Urine Straw (Yellow); Glucose, Dipstick Normal (Normal); Ketone-Dipstick Negative (Negative); Leukocyte Esterase-Dipstick 25 /ul (Negative); Nitrite-Dipstick Negative (Negative); Occult Blood-Urine Negative /ul (Negative); Protein-Dipstick Negative (Negative); Specific Gravity, Urine 1.005 (1.002-1.030); Urine Bilirubin Dipstick Negative (Negative); Urine Clarity Clear (Clear); Urine Urobilinogen Normal (Normal)
[2020-10-06 10:39] LABS: Vitamin D,25 Hydroxy 71.5 ng/mL; White Blood Cells 0-5 SEEN /hpf (0-5)
[2020-10-06 10:50] LABS: Anion Gap 4 (5-15); BUN 33 mg/dL (7-18); Calcium,Total 9.4 mg/dL (8.5-10.1); Chloride 103 mmol/L (98-107); Creatinine, Serum 1.57 mg/dL (0.55-1.02); EST Glomerular Filtration Rate 34 mL/min (>60); Est Glom Filt Rate - Afr Amer 41 mL/min (>60); Glucose 100 mg/dL (74-106); Phosphorus 2.6 mg/dL (2.5-4.9); Potassium 3.7 mmol/L (3.5-5.1); Protein, Urine (Random) 12.9 mg/dL (<11.9); Protein:Creat Ratio 270 mg/g CRE (0-200); Sodium Level 136 mmol/L (136-145)
[2020-10-06 11:31] LABS: PTHIN 111.5 pg/mL (18.4-80.1)
[2020-10-06 15:05] LABS: Free T3 2.2 pg/mL (2.18-3.98); T4 Total, Thyroxin 9.2 ug/dL (4.8-13.9); Thyroid Stim Hormone (TSH) 2.86 uIU/mL (0.358-3.74)
[2020-10-09 17:30] LABS: Tacrolimus (FK506) 6.1 ng/mL (2.0-20.0)
== END ==
PROVIDERS: PCP Family Medicine; Referring Provider Internal Medicine; Visit Provider Internal Medicine
DX: N25.81 Secondary hyperparathyroidism of renal origin (principal); Z94.0 Kidney transplant status; D89.9 Disorder involving the immune mechanism, unspecified; E03.9 Hypothyroidism, unspecified
CPT/HCPCS: 36415; 80048; 80197; 81001; 82306; 82570; 83970; 84100; 84156; 84436; 84443; 84481

== ENCOUNTER → 2021-04-19 10:11 | Outpatient (CLI) | payer MEDICARE, SELFPAY ==
[2021-04-19 12:50] LABS: Anion Gap 9 (5-15); BUN 21 mg/dL (7-18); BUN/Creat Ratio 12.8 RATIO (10-20); Calcium,Total 9.6 mg/dL (8.5-10.1); Chloride 102 mmol/L (98-107); Creatinine, Serum 1.64 mg/dL (0.55-1.02); EST Glomerular Filtration Rate 32 mL/min (>60); Est Glom Filt Rate - Afr Amer 39 mL/min (>60); Glucose 131 mg/dL (74-106); Potassium 3.8 mmol/L (3.5-5.1); Sodium Level 136 mmol/L (136-145)
[2021-04-19 13:29] LABS: Protein, Urine (Random) 22.9 mg/dL (<11.9); Protein:Creat Ratio 262 mg/g CRE (0-200)
[2021-04-25 12:54] LABS: Tacrolimus (FK506) 2.9 ng/mL (2.0-20.0)
== END ==
PROVIDERS: PCP Family Medicine; Referring Provider Family Medicine; Visit Provider Internal Medicine Nephrology
DX: D89.9 Disorder involving the immune mechanism, unspecified (principal); Z94.0 Kidney transplant status
CPT/HCPCS: 36415; 80048; 80197; 82570; 84156

== ENCOUNTER → 2021-10-18 | Outpatient (CLI) | payer MEDICARE, SELFPAY ==
[2021-10-18 12:14] LABS: Hematocrit 39.9 % (37-47); Hemoglobin 13.4 g/dL (12.0-15.0); Mean Corp Hgb Conc 33.6 g/dL (32-36); Mean Corpuscular Hgb 33.1 pg (27.0-32.0); Mean Corpuscular Volume 98.5 fL (81-99); Mean Platelet Vol. 10.8 fl (6.2-12.0); Platelet Count 229 K/mm3 (150-450); RBC Distribution Width CV 12.5 % (11.6-14.6); RBC Distribution Width SD 44.9 fl (35.1-43.9); Red Blood Count 4.05 M/mm3 (4.2-5.4); White Blood Count 4.8 K/mm3 (4.4-11.0)
[2021-10-18 12:42] LABS: Vitamin D,25 Hydroxy 84.5 ng/mL
[2021-10-18 12:54] LABS: PTHIN 111.6 pg/mL (18.4-80.1)
[2021-10-18 12:55] LABS: Albumin, Serum 3.5 g/dL (3.2-5.0); BUN 25 mg/dL (7-18); BUN/Creat Ratio 16.8 RATIO (10-20); Calcium,Total 9.4 mg/dL (8.5-10.1); Chloride 102 mmol/L (98-107); Creatinine, Serum 1.49 mg/dL (0.55-1.02); EST Glomerular Filtration Rate 36 mL/min (>60); Est Glom Filt Rate - Afr Amer 44 mL/min (>60); Glucose 119 mg/dL (74-106); Phosphorus 2.7 mg/dL (2.5-4.9); Potassium 3.8 mmol/L (3.5-5.1); Sodium Level 133 mmol/L (136-145)
[2021-10-26 14:31] LABS: Tacrolimus (FK506) 5.3 ng/mL (2.0-20.0)
== END | disposition home or self-care (01) ==
LOC: MFPLAB 10:22
PROVIDERS: PCP Family Medicine; Referring Provider Family Medicine; Visit Provider Internal Medicine Nephrology
DX: N05.5 Unspecified nephritic syndrome with diffuse mesangiocapillary glomerulonephritis (principal); D89.9 Disorder involving the immune mechanism, unspecified; N25.81 Secondary hyperparathyroidism of renal origin
CPT/HCPCS: 36415; 80069; 80197; 82306; 82570; 83970; 84156; 85027

== ENCOUNTER → 2021-11-03 | Outpatient (CLI) | payer MEDICARE, SELFPAY ==
[2021-11-03 16:08] LABS: Free T3 2.3 pg/mL (2.18-3.98); T4 Free Direct 1.07 ng/dL (0.76-1.46); Thyroid Stim Hormone (TSH) 2.65 uIU/mL (0.358-3.74)
== END | disposition home or self-care (01) ==
LOC: MFPLAB 11:45
PROVIDERS: PCP Family Medicine; Visit Provider Family Medicine
DX: E03.9 Hypothyroidism, unspecified (principal)
CPT/HCPCS: 36415; 84439; 84443; 84481

== ENCOUNTER → 2022-04-24 | Outpatient (CLI) | payer MEDICARE, SELFPAY ==
[2022-04-24 12:25] LABS: Hematocrit 39.6 % (37-47); Hemoglobin 13.4 g/dL (12.0-15.0); Mean Corp Hgb Conc 33.8 g/dL (32-36); Mean Corpuscular Hgb 33.8 pg (27.0-32.0); Mean Corpuscular Volume 99.7 fL (81-99); Mean Platelet Vol. 10.3 fl (6.2-12.0); Platelet Count 247 K/mm3 (150-450); RBC Distribution Width CV 12.1 % (11.6-14.6); RBC Distribution Width SD 44.8 fl (35.1-43.9); Red Blood Count 3.97 M/mm3 (4.2-5.4); White Blood Count 4.6 K/mm3 (4.4-11.0)
[2022-04-24 12:49] LABS: PTHIN 72.2 pg/mL (18.4-80.1)
[2022-04-24 13:27] LABS: Vitamin D,25 Hydroxy 92.1 ng/mL
[2022-04-24 13:33] LABS: Albumin, Serum 3.5 g/dL (3.2-5.0); BUN 28 mg/dL (7-18); BUN/Creat Ratio 20.6 RATIO (10-20); Calcium,Total 9.7 mg/dL (8.5-10.1); Chloride 101 mmol/L (98-107); Creatinine, Serum 1.36 mg/dL (0.55-1.02); EST Glomerular Filtration Rate 40 mL/min (>60); Est Glom Filt Rate - Afr Amer 48 mL/min (>60); Glucose 102 mg/dL (74-106); Phosphorus 2.8 mg/dL (2.5-4.9); Sodium Level 133 mmol/L (136-145)
[2022-05-01 16:40] LABS: Tacrolimus (FK506) 16.6 ng/mL (2.0-20.0)
== END | disposition home or self-care (01) ==
LOC: MFPLAB 11:17
PROVIDERS: PCP Family Medicine; Referring Provider Family Medicine; Visit Provider Internal Medicine Nephrology
DX: N25.81 Secondary hyperparathyroidism of renal origin (principal); D89.9 Disorder involving the immune mechanism, unspecified; Z94.0 Kidney transplant status
CPT/HCPCS: 36415; 80069; 80197; 82306; 83970; 85027

== ENCOUNTER → 2022-04-25 | Outpatient (CLI) | payer MEDICARE, SELFPAY ==
[2022-04-25 13:05] LABS: Protein:Creat Ratio 124 mg/g CRE (0-200)
== END | disposition home or self-care (01) ==
LOC: LABSPEC 11:01
PROVIDERS: PCP Family Medicine; Referring Provider Family Medicine; Visit Provider Internal Medicine Nephrology
DX: N25.81 Secondary hyperparathyroidism of renal origin (principal); D89.9 Disorder involving the immune mechanism, unspecified; Z94.0 Kidney transplant status
CPT/HCPCS: 82570; 84156

== ENCOUNTER → 2022-11-02 | Outpatient (CLI) | payer MEDICARE, SELFPAY ==
[2022-11-02 12:37] LABS: Hematocrit 40.6 % (37-47); Mean Corpuscular Hgb 32.8 pg (27.0-32.0); Mean Corpuscular Volume 102.5 fL (81-99); Mean Platelet Vol. 10.6 fl (6.2-12.0); Platelet Count 241 K/mm3 (150-450); RBC Distribution Width CV 12.5 % (11.6-14.6); RBC Distribution Width SD 47.2 fl (35.1-43.9); Red Blood Count 3.96 M/mm3 (4.2-5.4); White Blood Count 4.7 K/mm3 (4.4-11.0)
[2022-11-02 13:07] LABS: PTHIN 107.4 pg/mL (18.4-80.1)
[2022-11-02 13:09] LABS: Albumin, Serum 3.5 g/dL (3.2-5.0); BUN 24 mg/dL (7-18); BUN/Creat Ratio 15.6 RATIO (10-20); Calcium,Total 9.4 mg/dL (8.5-10.1); Chloride 100 mmol/L (98-107); Creatinine, Serum 1.54 mg/dL (0.55-1.02); EST Glomerular Filtration Rate 35 mL/min (>60); Est Glom Filt Rate - Afr Amer 42 mL/min (>60); Glucose 126 mg/dL (74-106); Phosphorus 2.6 mg/dL (2.5-4.9); Potassium 3.8 mmol/L (3.5-5.1); Sodium Level 132 mmol/L (136-145)
[2022-11-06 00:06] LABS: Tacrolimus (FK506) 4.7 ng/mL (2.0-20.0)
== END | disposition home or self-care (01) ==
LOC: MFPLAB 10:20
PROVIDERS: PCP Family Medicine; Visit Provider Internal Medicine Nephrology
DX: Z94.0 Kidney transplant status (principal); D89.9 Disorder involving the immune mechanism, unspecified; N25.81 Secondary hyperparathyroidism of renal origin
CPT/HCPCS: 36415; 80069; 80197; 82306; 83970; 85027

== ENCOUNTER → 2022-11-05 | Outpatient (CLI) | payer MEDICARE, SELFPAY ==
[2022-11-05 12:31] LABS: Protein, Urine (Random) 12.2 mg/dL (<11.9); Protein:Creat Ratio 262 mg/g CRE (0-200)
== END | disposition home or self-care (01) ==
LOC: LABSPEC 10:56
PROVIDERS: PCP Family Medicine; Visit Provider Internal Medicine Nephrology
DX: Z94.0 Kidney transplant status (principal); D89.9 Disorder involving the immune mechanism, unspecified; N25.81 Secondary hyperparathyroidism of renal origin
CPT/HCPCS: 82570; 84156

== ENCOUNTER → 2022-11-12 | Outpatient (CLI) | payer MEDICARE, SELFPAY ==
[2022-11-12 10:51] LABS: Anion Gap 8 (5-15); BUN 22 mg/dL (7-18); BUN/Creat Ratio 16.1 RATIO (10-20); Calcium,Total 9.8 mg/dL (8.5-10.1); Chloride 107 mmol/L (98-107); Cholesterol 142 mg/dL (200); Creatinine, Serum 1.37 mg/dL (0.55-1.02); EST Glomerular Filtration Rate 40 mL/min (>60); Est Glom Filt Rate - Afr Amer 48 mL/min (>60); Glucose 94 mg/dL (74-106); High Density Lipoprotein 52 mg/dL; Potassium 3.7 mmol/L (3.5-5.1); Sodium Level 140 mmol/L (136-145); Thyroid Stim Hormone (TSH) 2.31 uIU/mL (0.358-3.74); Triglycerides 67 mg/dL; Very Low Density Lipoprotein 13 mg/dL (5-40)
== END | disposition home or self-care (01) ==
LOC: MFPLAB 08:25
PROVIDERS: PCP Family Medicine; Visit Provider Family Medicine
DX: Z00.00 Encounter for general adult medical examination without abnormal findings (principal); E03.9 Hypothyroidism, unspecified; I10 Essential (primary) hypertension
CPT/HCPCS: 36415; 80048; 80061; 84443

== ENCOUNTER → 2023-03-21 | Outpatient (CLI) | payer MEDICARE, SELFPAY ==
--- NOTE | 2023-03-21 10:30 | RAD_ITS ---
INDICATION: PAIN EXAMINATION/TECHNIQUE: X-RAY - LEFT XR Knee Complete 4 Views COMPARISON: FINDINGS: SOFT TISSUES: No soft tissue swelling or gas. No radiopaque foreign body. BONES/JOINTS: No acute fracture or subluxation.. Normal alignment. Preservation of the joint space.. No sclerotic or destructive changes observed. RAD/Knee 4 or More Views IMPRESSION: No acute bony injury. Electronically Signed: Jose Kothari DO at 17:27 EDT ,
== END | disposition home or self-care (01) ==
PROVIDERS: PCP Family Medicine; Referring Provider Family Medicine; Visit Provider Family Medicine
DX: M25.562 Pain in left knee (principal)
CPT/HCPCS: 73564

== ENCOUNTER → 2023-05-30 | Outpatient (CLI) | payer MEDICARE, SELFPAY ==
[2023-05-30 10:39] LABS: Anion Gap 5 (5-15); BUN 20 mg/dL (7-18); BUN/Creat Ratio 13.9 RATIO (10-20); Calcium,Total 9.3 mg/dL (8.5-10.1); Chloride 104 mmol/L (98-107); Creatinine, Serum 1.44 mg/dL (0.55-1.02); EST Glomerular Filtration Rate 37 mL/min (>60); Est Glom Filt Rate - Afr Amer 45 mL/min (>60); Glucose 119 mg/dL (74-106); Potassium 4.2 mmol/L (3.5-5.1); Sodium Level 135 mmol/L (136-145)
[2023-05-30 10:49] LABS: PTHIN 84.8 pg/mL (18.4-80.1)
[2023-06-01 20:07] LABS: Tacrolimus (FK506) 7.3 ng/mL (2.0-20.0)
== END | disposition home or self-care (01) ==
LOC: MFPLAB 09:17
PROVIDERS: PCP Family Medicine; Visit Provider Internal Medicine Nephrology
DX: D89.9 Disorder involving the immune mechanism, unspecified (principal)
CPT/HCPCS: 36415; 80048; 80197; 83970

== ENCOUNTER → 2023-05-31 | Outpatient (CLI) | payer MEDICARE, SELFPAY ==
[2023-05-31 17:03] LABS: Creatinine, Urine (random) < 13.00 mg/dL (NO RANGE EST.)
== END | disposition home or self-care (01) ==
LOC: LABSPEC 12:15
PROVIDERS: PCP Family Medicine; Visit Provider Internal Medicine Nephrology
DX: D89.9 Disorder involving the immune mechanism, unspecified (principal)
CPT/HCPCS: 82043; 82570

== ENCOUNTER → 2023-11-15 | Outpatient (CLI) | payer MEDICARE, SELFPAY ==
[2023-11-15 16:57] LABS: Anion Gap 7 (5-15); BUN 28 mg/dL (7-18); BUN/Creat Ratio 21.7 RATIO (10-20); Calcium,Total 9.7 mg/dL (8.5-10.1); Chloride 98 mmol/L (98-107); Cholesterol 140 mg/dL (200); Creatinine, Serum 1.29 mg/dL (0.55-1.02); EST Glomerular Filtration Rate 42 mL/min (>60); Est Glom Filt Rate - Afr Amer 51 mL/min (>60); Free T3 2.3 pg/mL (2.18-3.98); Glucose 109 mg/dL (74-106); High Density Lipoprotein 51 mg/dL; Potassium 4.2 mmol/L (3.5-5.1); Sodium Level 130 mmol/L (136-145); Thyroid Stim Hormone (TSH) 2.25 uIU/mL (0.358-3.74); Triglycerides 75 mg/dL; Very Low Density Lipoprotein 15 mg/dL (5-40)
== END | disposition home or self-care (01) ==
LOC: MFPLAB 11:24
PROVIDERS: PCP Family Medicine; Visit Provider Family Medicine
DX: Z00.00 Encounter for general adult medical examination without abnormal findings (principal); E03.9 Hypothyroidism, unspecified
CPT/HCPCS: 36415; 80048; 80061; 84439; 84443; 84481

== ENCOUNTER → 2023-12-10 | Outpatient (CLI) | payer MEDICARE, SELFPAY ==
[2023-12-10 13:08] LABS: PTHIN 99.6 pg/mL (18.4-80.1)
[2023-12-10 13:18] LABS: Anion Gap 7 (5-15); BUN 19 mg/dL (7-18); BUN/Creat Ratio 15.2 RATIO (10-20); Calcium,Total 9.4 mg/dL (8.5-10.1); Chloride 102 mmol/L (98-107); Creatinine, Serum 1.25 mg/dL (0.55-1.02); EST Glomerular Filtration Rate 44 mL/min (>60); Est Glom Filt Rate - Afr Amer 53 mL/min (>60); Glucose 117 mg/dL (74-106); Potassium 3.8 mmol/L (3.5-5.1); Sodium Level 137 mmol/L (136-145)
[2023-12-14 00:07] LABS: Tacrolimus (FK506) 4.2 ng/mL (2.0-20.0)
== END | disposition home or self-care (01) ==
LOC: MFPLAB 09:38
PROVIDERS: PCP Family Medicine; Visit Provider Internal Medicine Nephrology
DX: N25.81 Secondary hyperparathyroidism of renal origin (principal); D89.9 Disorder involving the immune mechanism, unspecified; Z94.0 Kidney transplant status
CPT/HCPCS: 36415; 80048; 80197; 83970

== ENCOUNTER → 2023-12-11 | Outpatient (CLI) | payer MEDICARE, SELFPAY ==
[2023-12-11 13:17] LABS: Creatinine, Urine (random) < 13.00 mg/dL (NO RANGE EST.); Microalbumin,Random Urine 53.1 mg/L (NO RANGE EST.)
== END | disposition home or self-care (01) ==
LOC: MFPLAB 10:28
PROVIDERS: PCP Family Medicine; Visit Provider Internal Medicine Nephrology
DX: N25.81 Secondary hyperparathyroidism of renal origin (principal); D89.9 Disorder involving the immune mechanism, unspecified; Z94.0 Kidney transplant status
CPT/HCPCS: 82043; 82570

== ENCOUNTER → 2024-01-21 | Outpatient (CLI) | payer MEDICARE, SELFPAY ==
--- NOTE | 2024-01-21 12:35 | RAD_ITS ---
STUDY: X-RAY - RIGHT SHOULDER REASON FOR EXAM: Female, 78 years old. One month history of right shoulder pain. No known injury. TECHNIQUE: 4 view(s) of the shoulder. COMPARISON: None. FINDINGS: Normal glenohumeral articulation. Normal acromioclavicular joint. Normal acromion. Normal humeral head and visualized proximal humerus. The soft tissue structures are unremarkable. Normal visualized pulmonary apex. RAD/Shoulder min 2 Views IMPRESSION: Normal x-ray examination of the shoulder. Electronically Signed: Dimitris Oreilly MD at 13:17 EDT ,
== END | disposition home or self-care (01) ==
LOC: MTRAD 12:31
PROVIDERS: PCP Family Medicine; Referring Provider Physician Assistant; Visit Provider Physician Assistant
DX: S46.911A Strain of unspecified muscle, fascia and tendon at shoulder and upper arm level, right arm, initial encounter (principal); X58.XXXA Exposure to other specified factors, initial encounter
CPT/HCPCS: 73030

== ENCOUNTER → 2024-06-11 | Outpatient (CLI) | payer MEDICARE, SELFPAY ==
[2024-06-11 12:34] LABS: Hematocrit 38.7 % (37-47); Hemoglobin 13.1 g/dL (12.0-15.0); Mean Corp Hgb Conc 33.9 g/dL (32-36); Mean Corpuscular Hgb 33.9 pg (27.0-32.0); Mean Platelet Vol. 10.3 fl (6.2-12.0); Platelet Count 275 K/mm3 (150-450); RBC Distribution Width CV 12.2 % (11.6-14.6); RBC Distribution Width SD 45.4 fl (35.1-43.9); Red Blood Count 3.87 M/mm3 (4.2-5.4); White Blood Count 4.6 K/mm3 (4.4-11.0)
[2024-06-11 12:37] LABS: Anion Gap 6 (5-15); BUN 17 mg/dL (7-18); BUN/Creat Ratio 13.4 RATIO (10-20); Calcium,Total 9.5 mg/dL (8.5-10.1); Chloride 100 mmol/L (98-107); Creatinine, Serum 1.27 mg/dL (0.55-1.02); EST Glomerular Filtration Rate 43 mL/min (>60); Est Glom Filt Rate - Afr Amer 52 mL/min (>60); Glucose 131 mg/dL (74-106); Potassium 3.3 mmol/L (3.5-5.1); Sodium Level 133 mmol/L (136-145)
[2024-06-11 13:06] LABS: PTHIN 90.2 pg/mL (18.4-80.1)
[2024-06-14 10:07] LABS: Tacrolimus (FK506) 10.7 ng/mL (2.0-20.0)
== END | disposition home or self-care (01) ==
LOC: MFPLAB 09:37
PROVIDERS: PCP Family Medicine; Visit Provider Internal Medicine Nephrology
DX: N25.81 Secondary hyperparathyroidism of renal origin (principal); D89.9 Disorder involving the immune mechanism, unspecified; Z94.0 Kidney transplant status
CPT/HCPCS: 36415; 80048; 80197; 83970; 85027

== ENCOUNTER → 2024-06-12 | Outpatient (CLI) | payer MEDICARE, SELFPAY ==
[2024-06-12 12:29] LABS: Microalbumin:Creatinine Ratio 132.3 mg/g CRE (<30 mg/g CRE)
== END | disposition home or self-care (01) ==
LOC: LABSPEC 11:08
PROVIDERS: PCP Family Medicine; Visit Provider Internal Medicine Nephrology
DX: N25.81 Secondary hyperparathyroidism of renal origin (principal); D89.89 Other specified disorders involving the immune mechanism, not elsewhere classified; Z94.0 Kidney transplant status
CPT/HCPCS: 82043; 82570

== ENCOUNTER → 2024-11-20 | Outpatient (CLI) | payer MEDICARE, SELFPAY ==
[2024-11-20 16:34] LABS: ALB/GLOB Ratio 1.3 RATIO (0.9-2.4); AST(SGOT) 23 U/L (<=31); Alanine Aminotransfer ALT/SGPT 10 U/L (<=34); Albumin, Serum 3.9 g/dL (3.4-4.8); Alkaline Phosphatase 116 U/L (35-104); Anion Gap 11 (5-15); BUN 21 mg/dL (4-19); BUN/Creat Ratio 17.7 RATIO (10-20); Calcium,Total 9.4 mg/dL (7.6-11.0); Carbon Dioxide 22.9 mmol/L (21.0-32.0); Chloride 95 mmol/L (98-108); Cholesterol 138 mg/dL (<=200); Creatinine, Serum 1.19 mg/dL (0.70-1.20); EST Glomerular Filtration Rate 46 (>60); Free T3 2.5 pg/mL (2.18-3.98); Globulin 2.9 g/dL (2.2-4.2); Glucose 159 mg/dL (70-99); High Density Lipoprotein 52 mg/dL; Low Density Lipoprotein Calc. 72 mg/dL; Potassium 4.1 mmol/L (3.3-5.1); Protein, Total 6.8 g/dL (5.9-8.4); Sodium Level 129 mmol/L (133-145); Total Bilirubin 0.32 mg/dL (0.00-1.30); Triglycerides 73 mg/dL; Very Low Density Lipoprotein 15 mg/dL (5-40); cholesterol:hdl ratio screen 2.67
== END | disposition home or self-care (01) ==
LOC: MFPLAB 11:24
PROVIDERS: PCP Family Medicine; Visit Provider Family Medicine
DX: I10 Essential (primary) hypertension (principal); E03.9 Hypothyroidism, unspecified
CPT/HCPCS: 36415; 80053; 80061; 84439; 84443; 84481

== ENCOUNTER → 2024-12-22 | Outpatient (CLI) | payer MEDICARE, SELFPAY ==
[2024-12-22 12:46] LABS: Hematocrit 38.3 % (37-47); Hemoglobin 13.0 g/dL (12.0-15.0); Mean Corp Hgb Conc 33.9 g/dL (32-36); Mean Corpuscular Volume 101.6 fL (81-99); Mean Platelet Vol. 10.4 fl (6.2-12.0); Platelet Count 274 K/mm3 (150-450); RBC Distribution Width CV 12.2 % (11.6-14.6); RBC Distribution Width SD 45.3 fl (35.1-43.9); Red Blood Count 3.77 M/mm3 (4.2-5.4); White Blood Count 5.5 K/mm3 (4.4-11.0)
[2024-12-22 13:25] LABS: Anion Gap 12 (5-15); BUN 18 mg/dL (4-19); BUN/Creat Ratio 16.8 RATIO (10-20); Calcium,Total 9.2 mg/dL (7.6-11.0); Carbon Dioxide 24.2 mmol/L (21.0-32.0); Chloride 97 mmol/L (98-108); Glucose 101 mg/dL (70-99); Potassium 3.5 mmol/L (3.3-5.1)
[2024-12-22 13:40] LABS: PTHIN 62 pg/mL (11-61)
== END | disposition home or self-care (01) ==
LOC: MFPLAB 09:36
PROVIDERS: PCP Family Medicine; Referring Provider Internal Medicine Nephrology; Visit Provider Internal Medicine Nephrology
DX: N25.81 Secondary hyperparathyroidism of renal origin (principal); D89.9 Disorder involving the immune mechanism, unspecified; Z94.0 Kidney transplant status
CPT/HCPCS: 36415; 80048; 80197; 82043; 82570; 83970; 85027

== ENCOUNTER → 2024-12-23 | Outpatient (CLI) | payer MEDICARE, SELFPAY ==
[2024-12-23 16:15] LABS: Creatinine, Urine (random) 19.40 mg/dL (28.00-217.00); Microalbumin,Random Urine 31.7 mg/L (NO RANGE EST.)
== END | disposition home or self-care (01) ==
LOC: LABSPEC 05-05 11:56
PROVIDERS: PCP Family Medicine; Referring Provider Internal Medicine Nephrology; Visit Provider Internal Medicine Nephrology
DX: N25.81 Secondary hyperparathyroidism of renal origin (principal); D89.9 Disorder involving the immune mechanism, unspecified; Z94.0 Kidney transplant status
CPT/HCPCS: 82043; 82570

== ENCOUNTER → 2025-05-03 | Outpatient (CLI) | payer MEDICARE, SELFPAY ==
--- NOTE | 2025-05-03 11:36 | RAD_ITS ---
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 There is no acute fracture or dislocation identified. There is a 0.4 cm corticated osteochondral fragment in the lateral joint space. There is a small visible joint effusion. Osteopenia is noted. Vascular calcifications are present. RAD/Knee 4 or More Views IMPRESSION: No acute fracture or dislocation is identified. Reading Location: [facility]
[2025-05-03 15:52] LABS: Anion Gap 11 (5-15); BUN 21 mg/dL (4-19); BUN/Creat Ratio 15.8 RATIO (10-20); Calcium,Total 9.6 mg/dL (7.6-11.0); Carbon Dioxide 24.7 mmol/L (21.0-32.0); Chloride 100 mmol/L (98-108); Cholesterol 152 mg/dL (<=200); Free T3 2.3 pg/mL (2.18-3.98); Glucose 148 mg/dL (70-99); Low Density Lipoprotein Calc. 79 mg/dL; Potassium 3.8 mmol/L (3.3-5.1); Triglycerides 83 mg/dL; Very Low Density Lipoprotein 17 mg/dL (5-40); cholesterol:hdl ratio screen 2.64
== END | disposition home or self-care (01) ==
PROVIDERS: PCP Family Medicine; Referring Provider Family Medicine; Visit Provider Family Medicine
DX: E03.9 Hypothyroidism, unspecified (principal); I10 Essential (primary) hypertension; M25.569 Pain in unspecified knee
CPT/HCPCS: 36415; 73564; 80048; 80061; 84439; 84443; 84481

== ENCOUNTER → 2025-06-15 | Outpatient (CLI) | payer MEDICARE, SELFPAY ==
[2025-06-15 12:22] LABS: Hematocrit 38.1 % (37-47); Hemoglobin 12.9 g/dL (12.0-15.0); Mean Corp Hgb Conc 33.9 g/dL (32-36); Mean Corpuscular Volume 99.0 fL (81-99); Mean Platelet Vol. 10.2 fl (6.2-12.0); Platelet Count 259 K/mm3 (150-450); RBC Distribution Width CV 12.1 % (11.6-14.6); RBC Distribution Width SD 44.5 fl (35.1-43.9); Red Blood Count 3.85 M/mm3 (4.2-5.4); White Blood Count 4.3 K/mm3 (4.4-11.0)
[2025-06-15 12:58] LABS: PTHIN 66 pg/mL (11-61)
[2025-06-15 13:10] LABS: Creatinine, Urine (random) 67.60 mg/dL (28.00-217.00); Protein, Urine (Random) 28.6 mg/dL (0.0-12.0); Protein:Creat Ratio 423 mg/g CRE (0-200)
[2025-06-15 13:35] LABS: Albumin, Serum 4.0 g/dL (3.4-4.8); Anion Gap 12 (7-18); BUN 17 mg/dL (4-19); BUN/Creat Ratio 14.1 RATIO (10-20); Calcium,Total 9.2 mg/dL (7.6-11.0); Carbon Dioxide 24.5 mmol/L (20.0-29.0); Chloride 94 mmol/L (96-106); Glucose 108 mg/dL (70-99); Potassium 3.7 mmol/L (3.5-5.1); Vitamin D,25 Hydroxy 61.0 ng/mL (30-100)
== END | disposition home or self-care (01) ==
LOC: MTLAB 09:31
PROVIDERS: PCP Family Medicine; Referring Provider Internal Medicine Nephrology; Visit Provider Internal Medicine Nephrology
DX: Z94.0 Kidney transplant status (principal); D89.9 Disorder involving the immune mechanism, unspecified
CPT/HCPCS: 36415; 80069; 80197; 82306; 82570; 83970; 84156; 85027